=== PATIENT | female | born 1935 | race Caucasian/White ===

== ENCOUNTER 2017-11-21 10:29 | Inpatient (IN) ==
[2017-11-21 11:25] LABS: Basophils % 0.2 % (0.0-0.8); Eosinophils % 0.2 % (0.00-10.9); Hematocrit 34.8 VOL% (35.7-47.0); Hemoglobin 12.6 GM/DL (12.0-16.0); Immature Granulocytes % 0.3 %; Immature Granulocytes Absolute 0.03 #; Lymphocytes # 1.7 10*3/uL (1.4-4.0); Lymphocytes % 18.2 % (21.3-54.2); Mean Corpuscular HGB Conc 36.2 GM/DL (32-36); Mean Corpuscular Hemoglobin 35 PG (27-34); Mean Corpuscular Volume 96.1 FL (87-102); Mean Platelet Volume 9.3 FL (9.6-12.0); Monocytes # 0.6 10*3/uL (0.11-0.8); Monocytes % 6.8 % (1.7-12.7); Neutrophils # 6.9 10*3/uL (1.4-7.4); Neutrophils % 74.3 % (38.7-73.9); Platelet Count 234 T/CUMM (130-400); Red Blood Count 3.62 MC/CUMM (3.8-5.5); Red Cell Distribution Width 14.5 % (9.3-17.3); White Blood Count 9.4 T/CUMM (4-12)
[2017-11-21 11:27] LABS: Apearance,Urine CLEAR (Clear); Bilirubin,Urine Negative (Negative); Blood, Urine Negative (Negative); Glucose,Urine (UA) Negative (Negative); Hyaline Casts,Urine 2 /LPF (0-3); Ketones,Urine Negative (Negative); Nitrite,Urine Negative (Negative); Protein,Urine Negative; RBC,Urine <1 /HPF (0-4); Urine Color Yellow (Yellow); Urine Specific Gravity 1.012 (1.001-1.035); Urine Urobilinogen < 2.0 EU/DL (0.2-1.0); WBC,Urine 13 /HPF (0-6)
[2017-11-21 11:49] LABS: Albumin 3.2 G/DL (3.4-5.0); Bilirubin,Total 0.8 MG/DL (0.2-1.0); Calcium 10.6 MG/DL (8.5-10.1); Osmolality,Calculated 275.1 MOS/KG (273-304); Potassium 4.1 MMOL/L (3.5-5.1); Total Protein 6.6 G/DL (6.4-8.3)
[2017-11-21] MEDS ORDERED: MORPHINE 4 MG/1 ML VIAL IV STA (12:05)
[2017-11-21] MEDS ORDERED: ONDANSETRON 4 MG/2 ML VIAL IV STA (12:24)
[2017-11-21] MEDS ORDERED: ONDANSETRON 4 MG/2 ML VIAL ONE (12:25)
[2017-11-21] MEDS ORDERED: cefTRIAXone 1,000 MG in SODIUM CHLORIDE 0.9% 100 ML IV STA (14:00)
[2017-11-21] MEDS ORDERED: PANTOPRAZOLE 40 MG TABLET PO STA (15:33)
[2017-11-21] MEDS: ALUMINUM/MAGNES/SIMETH MAX STR 30 ML UDCUP PO PRN (15:49)
[2017-11-21] MEDS ORDERED: ONDANSETRON 4 MG/2 ML VIAL IV PRN (16:57)
[2017-11-21 19:20] LABS: Hematocrit 35.4 VOL% (35.7-47.0); Hemoglobin 12.7 GM/DL (12.0-16.0)
[2017-11-21] MEDS: PANTOPRAZOLE 40 MG VIAL IV SCH (20:54)
[2017-11-21] MEDS: SODIUM CHLORIDE 0.9% 1,000 ML IV SCH (20:54)
[2017-11-21] MEDS: FLUTICASONE/SALMETEROL 100-50 DISKUS 14 DOSE INH SCH (20:54)
[2017-11-21] MEDS: MORPHINE 4 MG/1 ML VIAL IV PRN (20:55)
[2017-11-21] MEDS: MIRTAZAPINE 15 MG TABLET PO SCH (21:05)
[2017-11-22 01:06] LABS: Osmolality,Calculated 270.2 MOS/KG (273-304); Potassium 3.7 MMOL/L (3.5-5.1)
[2017-11-22 01:10] LABS: Basophils % 0.4 % (0.0-0.8); Eosinophils # 0.1 10*3/uL (0.0-0.87); Eosinophils % 0.6 % (0.00-10.9); Hematocrit 29.4 VOL% (35.7-47.0); Hemoglobin 10.5 GM/DL (12.0-16.0); Immature Granulocytes % 0.2 %; Immature Granulocytes Absolute 0.02 #; Lymphocytes # 2.1 10*3/uL (1.4-4.0); Lymphocytes % 24.7 % (21.3-54.2); Mean Corpuscular HGB Conc 35.7 GM/DL (32-36); Mean Corpuscular Hemoglobin 35 PG (27-34); Mean Platelet Volume 9.4 FL (9.6-12.0); Monocytes # 0.7 10*3/uL (0.11-0.8); Monocytes % 8.4 % (1.7-12.7); Neutrophils # 5.6 10*3/uL (1.4-7.4); Neutrophils % 65.7 % (38.7-73.9); Platelet Count 206 T/CUMM (130-400); Red Cell Distribution Width 14.6 % (9.3-17.3); White Blood Count 8.6 T/CUMM (4-12)
[2017-11-22] MEDS: LEVOTHYROXINE 75 MCG TABLET PO SCH (09:00)
[2017-11-22] MEDS: FLUTICASONE/SALMETEROL 100-50 DISKUS 14 DOSE INH SCH ×2 (09:15→20:28)
[2017-11-22] MEDS: PANTOPRAZOLE 40 MG VIAL IV SCH ×2 (09:16→20:29)
[2017-11-22] MEDS: SODIUM CHLORIDE 0.9% 1,000 ML IV SCH ×3 (09:20→22:04)
[2017-11-22 10:04] LABS: Hematocrit 28.4 VOL% (35.7-47.0); Hemoglobin 9.8 GM/DL (12.0-16.0)
[2017-11-22] MEDS: MORPHINE 4 MG/1 ML VIAL IV PRN ×2 (12:39→18:34)
[2017-11-22] MEDS: cefTRIAXone 1,000 MG in SYRINGE 1 EACH IV SCH (14:46)
[2017-11-22] MEDS: ZALEPLON 5 MG CAPSULE PO PRN (20:29)
[2017-11-22] MEDS: MIRTAZAPINE 15 MG TABLET PO SCH (20:29)
[2017-11-23] MEDS: MORPHINE 4 MG/1 ML VIAL IV PRN ×2 (07:50→20:27)
[2017-11-23] MEDS: PANTOPRAZOLE 40 MG VIAL IV SCH ×2 (08:58→20:28)
[2017-11-23] MEDS: LEVOTHYROXINE 75 MCG TABLET PO SCH (08:58)
[2017-11-23] MEDS: FLUTICASONE/SALMETEROL 100-50 DISKUS 14 DOSE INH SCH ×2 (09:12→20:26)
[2017-11-23] MEDS: SODIUM CHLORIDE 0.9% 1,000 ML IV SCH ×2 (10:44→23:31)
[2017-11-23] MEDS ORDERED: ACETAMINOPHEN 325 MG TABLET PO PRN (11:10)
[2017-11-23] MEDS: cefTRIAXone 1,000 MG in SYRINGE 1 EACH IV SCH (14:32)
[2017-11-23] MEDS: MIRTAZAPINE 15 MG TABLET PO SCH (20:26)
[2017-11-23] MEDS: ZALEPLON 5 MG CAPSULE PO PRN (20:26)
[2017-11-24 08:39] LABS: Basophils % 0.5 % (0.0-0.8); Eosinophils # 0.1 10*3/uL (0.0-0.87); Eosinophils % 1.5 % (0.00-10.9); Hematocrit 31.8 VOL% (35.7-47.0); Hemoglobin 10.1 GM/DL (12.0-16.0); Immature Granulocytes % 0.5 %; Immature Granulocytes Absolute 0.03 #; Lymphocytes # 1.9 10*3/uL (1.4-4.0); Lymphocytes % 31.8 % (21.3-54.2); Mean Corpuscular HGB Conc 31.8 GM/DL (32-36); Mean Corpuscular Hemoglobin 35 PG (27-34); Mean Corpuscular Volume 109.3 FL (87-102); Mean Platelet Volume 9.3 FL (9.6-12.0); Monocytes # 0.7 10*3/uL (0.11-0.8); Monocytes % 10.9 % (1.7-12.7); Neutrophils # 3.3 10*3/uL (1.4-7.4); Neutrophils % 54.8 % (38.7-73.9); Platelet Count 168 T/CUMM (130-400); Red Blood Count 2.91 MC/CUMM (3.8-5.5); Red Cell Distribution Width 14.8 % (9.3-17.3); White Blood Count 6.1 T/CUMM (4-12)
[2017-11-24] MEDS: FLUTICASONE/SALMETEROL 100-50 DISKUS 14 DOSE INH SCH ×2 (09:11→21:49)
[2017-11-24] MEDS: PANTOPRAZOLE 40 MG VIAL IV SCH ×2 (09:36→21:49)
[2017-11-24] MEDS: LEVOTHYROXINE 75 MCG TABLET PO SCH (09:36)
[2017-11-24] MEDS: MORPHINE 4 MG/1 ML VIAL IV PRN ×2 (10:17→21:48)
[2017-11-24] MEDS: SODIUM CHLORIDE 0.9% 1,000 ML IV SCH (15:28)
[2017-11-24] MEDS: cefTRIAXone 1,000 MG in SYRINGE 1 EACH IV SCH (15:29)
[2017-11-24] MEDS: ALUMINUM/MAGNES/SIMETH MAX STR 30 ML UDCUP PO PRN (18:11)
[2017-11-24] MEDS: ZALEPLON 5 MG CAPSULE PO PRN (21:49)
[2017-11-24] MEDS: MIRTAZAPINE 15 MG TABLET PO SCH (21:49)
[2017-11-25] MEDS: SODIUM CHLORIDE 0.9% 1,000 ML IV SCH (02:50)
[2017-11-25] MEDS: MORPHINE 4 MG/1 ML VIAL IV PRN ×2 (05:41→15:25)
[2017-11-25] MEDS: FLUTICASONE/SALMETEROL 100-50 DISKUS 14 DOSE INH SCH ×2 (09:22→20:47)
[2017-11-25] MEDS: PANTOPRAZOLE 40 MG VIAL IV SCH (09:22)
[2017-11-25] MEDS ORDERED: PROPOFOL 200 MG/20 ML VIAL IV ONE (11:14)
[2017-11-25] MEDS ORDERED: LIDOCAINE 2% 5 ML VIAL ONE (11:14)
[2017-11-25] MEDS: LEVOTHYROXINE 75 MCG TABLET PO SCH (13:40)
[2017-11-25] MEDS: cefTRIAXone 1,000 MG in SYRINGE 1 EACH IV SCH (13:42)
[2017-11-25] MEDS ORDERED: ONDANSETRON 4 MG TABLET PO PRN (18:25)
[2017-11-25] MEDS: MIRTAZAPINE 15 MG TABLET PO SCH (20:48)
[2017-11-25] MEDS: PANTOPRAZOLE 40 MG TABLET PO SCH (20:48)
[2017-11-26] MEDS: ZALEPLON 5 MG CAPSULE PO PRN (01:12)
[2017-11-26] MEDS: CEFUROXIME 500 MG TABLET PO SCH ×2 (10:58→22:20)
[2017-11-26] MEDS: FLUTICASONE/SALMETEROL 100-50 DISKUS 14 DOSE INH SCH ×2 (10:58→22:21)
[2017-11-26] MEDS: PANTOPRAZOLE 40 MG TABLET PO SCH ×2 (10:58→22:20)
[2017-11-26] MEDS: LEVOTHYROXINE 75 MCG TABLET PO SCH (10:58)
[2017-11-26] MEDS ORDERED: BISACODYL 5 MG TABLET PO PRN (12:32)
[2017-11-26] MEDS: ALUMINUM/MAGNES/SIMETH MAX STR 30 ML UDCUP PO PRN (14:21)
[2017-11-26] MEDS ORDERED: MIRTAZAPINE 15 MG TABLET PO SCH (14:31)
[2017-11-26] MEDS ORDERED: MAGNESIUM HYDROXIDE SUSP 30 ML UDCUP PO ONE (14:51)
[2017-11-27] MEDS: FLUTICASONE/SALMETEROL 100-50 DISKUS 14 DOSE INH SCH (09:00)
[2017-11-27] MEDS: LEVOTHYROXINE 75 MCG TABLET PO SCH (11:15)
[2017-11-27] MEDS: CEFUROXIME 500 MG TABLET PO SCH (11:15)
[2017-11-27] MEDS: PANTOPRAZOLE 40 MG TABLET PO SCH (11:15)
[2017-11-27 11:21] VITALS: BP 127/80
== END 2017-11-27 15:20 | disposition swing bed (61) | DRG 378 ==
LOC: EDUNIT# → N.ED 10:29 → SUATTDRO 16:36 → N.EDINP 16:36 → N.3E 17:25 → UNDODISIN 11-27 15:20 → N.3E 11-28 01:21
PROVIDERS: ADMIT Internal Medicine Geriatric Medicine; ATTEND Internal Medicine Geriatric Medicine

== ENCOUNTER 2018-10-31 05:21 | Inpatient (IN) ==
[2018-10-31] MEDS ORDERED: ALBUTEROL/IPRATROPIUM 3 ML NEB RESP TX STA (05:30)
[2018-10-31] MEDS ORDERED: methylPREDNISolone SOD SUC 125 MG/2 ML VIAL IV STA (05:32)
[2018-10-31] MEDS ORDERED: hydrALAZINE 20 MG/1 ML VIAL IV STA (05:36)
[2018-10-31 05:57] LABS: VBG Base Excess -15.1 MEQ/L (0-4); VBG HCO3 13.1 MEQ/L (24-28); VBG Oxygen Saturation 97.5 %; VBG PCO2 35.3 MMHG (41-51)
[2018-10-31 05:58] LABS: Basophils # 0.1 10*3/uL (0.0-0.2); Basophils % 0.7 % (0.0-0.8); Eosinophils # 0.1 10*3/uL (0.0-0.87); Eosinophils % 0.9 % (0.00-10.9); Hemoglobin 12.2 GM/DL (12.0-16.0); Immature Granulocytes % 0.3 %; Immature Granulocytes Absolute 0.04 #; Lymphocytes # 4.5 10*3/uL (1.4-4.0); Lymphocytes % 38.8 % (21.3-54.2); Mean Corpuscular HGB Conc 30.5 GM/DL (32-36); Mean Corpuscular Volume 101.8 FL (87-102); Mean Platelet Volume 9.8 FL (9.6-12.0); Monocytes % 4.3 % (1.7-12.7); Platelet Count 307 T/CUMM (130-400); Red Blood Count 3.93 MC/CUMM (3.8-5.5); Red Cell Distribution Width 15.4 % (9.3-17.3); VBG PH 7.172; White Blood Count 11.5 T/CUMM (4-12)
[2018-10-31] MEDS ORDERED: DILTIAZEM 50 MG/10 ML VIAL IV STA (06:20)
[2018-10-31 06:27] LABS: Albumin 3.6 G/DL (3.4-5.0); Bilirubin,Total 0.6 MG/DL (0.2-1.0); Calcium 8.6 MG/DL (8.5-10.1); Osmolality,Calculated 286.7 MOS/KG (273-304); Total Protein 6.5 G/DL (6.4-8.3)
[2018-10-31 07:05] LABS: Amorphous Crystals,Urine Occasional /HPF (Few); Apearance,Urine Slightly Hazy (Clear); Bacteria,Urine Occasional /HPF (Few); Bilirubin,Urine Negative (Negative); Blood, Urine Negative (Negative); Glucose,Urine (UA) 50 mg/dL (Negative); Ketones,Urine Negative (Negative); Mucus,Urine Occasional /LPF (Occasional); Nitrite,Urine Negative (Negative); Protein,Urine 100 MG/DL; RBC,Urine 3 /HPF (0-4); Squamous Epithelial Cell,Urine Occasional /HPF (0-10); Urine Color Yellow (Yellow); Urine Specific Gravity 1.013 (1.001-1.035); Urine Urobilinogen < 2.0 EU/DL (0.2-1.0); WBC,Urine 7 /HPF (0-6)
[2018-10-31] MEDS ORDERED: ACETAMINOPHEN 500 MG TABLET PO STA (07:10)
[2018-10-31] MEDS ORDERED: FUROSEMIDE 40 MG/4 ML VIAL IV STA (07:23)
[2018-10-31] MEDS: dilTIAZem Drip 125 MG/125 ML PREMIX IV SCH (10:11)
[2018-10-31] MEDS ORDERED: ONDANSETRON 4 MG/2 ML VIAL IV PRN (12:11)
[2018-10-31] MEDS: FUROSEMIDE 40 MG/4 ML VIAL IV SCH (15:45)
[2018-10-31] MEDS: ALBUTEROL 1.25 MG/3 ML NEB RESP TX SCH ×3 (15:47→23:04)
[2018-10-31] MEDS: clonazePAM 0.5 MG TABLET PO PRN (20:31)
[2018-11-01] MEDS: ALBUTEROL 1.25 MG/3 ML NEB RESP TX SCH ×2 (03:06→07:23)
[2018-11-01 04:55] LABS: Hematocrit 34.9 VOL% (35.7-47.0); Hemoglobin 11.4 GM/DL (12.0-16.0); Immature Granulocytes % 0.3 %; Immature Granulocytes Absolute 0.02 #; Lymphocytes # 1.7 10*3/uL (1.4-4.0); Lymphocytes % 23.7 % (21.3-54.2); Mean Corpuscular HGB Conc 32.7 GM/DL (32-36); Mean Corpuscular Volume 94.8 FL (87-102); Mean Platelet Volume 9.8 FL (9.6-12.0); Monocytes % 10.9 % (1.7-12.7); Neutrophils % 65.1 % (38.7-73.9); Platelet Count 247 T/CUMM (130-400); Red Blood Count 3.68 MC/CUMM (3.8-5.5); Red Cell Distribution Width 15.1 % (9.3-17.3); White Blood Count 7.2 T/CUMM (4-12)
[2018-11-01 05:27] LABS: Calcium 8.8 MG/DL (8.5-10.1); Osmolality,Calculated 284.3 MOS/KG (273-304); Risk Ratio 1.58; Thyroid Stimulating Hormone 0.482 uIU/ml (0.358-3.74); VLDL CHOLESTEROL 16.2 MG/DL
[2018-11-01] MEDS: LEVOTHYROXINE 75 MCG TABLET PO SCH (06:10)
[2018-11-01] MEDS: dilTIAZem Drip 125 MG/125 ML PREMIX IV SCH (07:06)
[2018-11-01] MEDS ORDERED: NICOTINE 14 MG/24 HR PATCH TRANSDERM PRN (07:25)
[2018-11-01] MEDS ORDERED: LEVALBUTEROL 1.25 MG/3 ML NEB RESP TX PRN (07:32)
[2018-11-01] MEDS ORDERED: guaiFENesin/DM ER 600-30 MG TABLET PO PRN (08:11)
[2018-11-01] MEDS: METOPROLOL SUCCINATE XL 25 MG TABLET PO SCH (08:54)
[2018-11-01] MEDS: LISINOPRIL 5 MG TABLET PO SCH (08:54)
[2018-11-01] MEDS: FUROSEMIDE 40 MG/4 ML VIAL IV SCH ×2 (08:55→17:29)
[2018-11-01] MEDS: ACETAMINOPHEN 325 MG TABLET PO PRN (08:55)
[2018-11-01] MEDS: POTASSIUM CHLORIDE 20 MEQ TABLET PO PRN ×3 (08:55→14:49)
[2018-11-01] MEDS: PANTOPRAZOLE 40 MG TABLET PO SCH (08:58)
[2018-11-01] MEDS: LORATADINE 10 MG TABLET PO SCH (08:58)
[2018-11-01] MEDS: LEVALBUTEROL 1.25 MG/3 ML NEB RESP TX SCH ×3 (14:35→23:45)
[2018-11-01] MEDS: clonazePAM 0.5 MG TABLET PO PRN (19:11)
[2018-11-01] MEDS: BISACODYL 5 MG TABLET PO PRN (19:24)
[2018-11-01] MEDS ORDERED: NITROGLYCERIN SL 0.4 MG TABLET SL ONE ×2 (21:07→21:10)
[2018-11-01 21:50] LABS: Troponin I 0.054 NG/ML (0.00-0.045)
[2018-11-02 01:09] LABS: Troponin I 0.054 NG/ML (0.00-0.045)
[2018-11-02] MEDS: LEVALBUTEROL 1.25 MG/3 ML NEB RESP TX SCH ×6 (03:25→23:15)
[2018-11-02 04:50] LABS: Basophils % 0.5 % (0.0-0.8); Eosinophils # 0.1 10*3/uL (0.0-0.87); Eosinophils % 0.6 % (0.00-10.9); Hematocrit 36.9 VOL% (35.7-47.0); Hemoglobin 11.8 GM/DL (12.0-16.0); Immature Granulocytes % 0.4 %; Immature Granulocytes Absolute 0.03 #; Lymphocytes % 23.4 % (21.3-54.2); Mean Corpuscular Volume 96.9 FL (87-102); Mean Platelet Volume 10.1 FL (9.6-12.0); Monocytes % 9.7 % (1.7-12.7); Neutrophils % 65.4 % (38.7-73.9); Platelet Count 249 T/CUMM (130-400); Red Blood Count 3.81 MC/CUMM (3.8-5.5); Red Cell Distribution Width 15.5 % (9.3-17.3); White Blood Count 8.5 T/CUMM (4-12)
[2018-11-02 05:14] LABS: Calcium 9.5 MG/DL (8.5-10.1); Osmolality,Calculated 289.3 MOS/KG (273-304)
[2018-11-02 05:18] LABS: Troponin I 0.065 NG/ML (0.00-0.045)
[2018-11-02] MEDS: LEVOTHYROXINE 75 MCG TABLET PO SCH (05:48)
[2018-11-02] MEDS: dilTIAZem Drip 125 MG/125 ML PREMIX IV SCH (05:48)
[2018-11-02] MEDS: LISINOPRIL 5 MG TABLET PO SCH (09:04)
[2018-11-02] MEDS: FUROSEMIDE 40 MG/4 ML VIAL IV SCH ×2 (09:06→16:25)
[2018-11-02] MEDS: LORATADINE 10 MG TABLET PO SCH (09:09)
[2018-11-02] MEDS: METOPROLOL SUCCINATE XL 25 MG TABLET PO SCH ×2 (09:10→22:49)
[2018-11-02] MEDS: PANTOPRAZOLE 40 MG TABLET PO SCH (09:10)
[2018-11-02] MEDS ORDERED: METOPROLOL TARTRATE 5 MG/5 ML VIAL IV ONE ×3 (17:36→18:54)
[2018-11-02] MEDS ORDERED: DIGOXIN 0.5 MG/2 ML AMP IV ONE (18:19)
[2018-11-02] MEDS ORDERED: dilTIAZem Drip 125 MG/125 ML PREMIX IV SCH (19:00)
[2018-11-02] MEDS ORDERED: AMIODARONE INJ 450 MG in DEXTROSE 5% 241 ML IV SCH (20:00)
[2018-11-02] MEDS ORDERED: AMIODARONE INJ 150 MG in DEXTROSE 5% 100 ML IV ONE (20:28)
[2018-11-02] MEDS: APIXABAN 2.5 MG TABLET PO SCH (21:23)
[2018-11-02] MEDS: ACETAMINOPHEN 325 MG TABLET PO PRN (21:23)
[2018-11-03] MEDS ORDERED: AMIODARONE INJ 450 MG in DEXTROSE 5% 241 ML IV SCH (02:00)
[2018-11-03] MEDS: LEVALBUTEROL 1.25 MG/3 ML NEB RESP TX SCH ×5 (03:07→19:55)
[2018-11-03] MEDS: LEVOTHYROXINE 75 MCG TABLET PO SCH (05:50)
[2018-11-03] MEDS: dilTIAZem Drip 125 MG/125 ML PREMIX IV SCH (07:09)
[2018-11-03] MEDS: APIXABAN 2.5 MG TABLET PO SCH ×2 (09:00→21:13)
[2018-11-03] MEDS: LORATADINE 10 MG TABLET PO SCH (09:00)
[2018-11-03] MEDS: PANTOPRAZOLE 40 MG TABLET PO SCH (09:00)
[2018-11-03] MEDS: METOPROLOL SUCCINATE XL 25 MG TABLET PO SCH ×2 (09:01→21:14)
[2018-11-03] MEDS: FUROSEMIDE 40 MG/4 ML VIAL IV SCH (09:01)
[2018-11-03] MEDS: LISINOPRIL 5 MG TABLET PO SCH (09:01)
[2018-11-03 11:04] LABS: Calcium 8.2 MG/DL (8.5-10.1); Osmolality,Calculated 277.2 MOS/KG (273-304)
[2018-11-03] MEDS: AMIODARONE 200 MG TABLET PO SCH ×2 (12:06→21:13)
[2018-11-03] MEDS ORDERED: MAGNESIUM SULF RIDER 2 GM in PREMIX 1 EACH IV PRN (12:58)
[2018-11-03] MEDS ORDERED: MAGNESIUM SULF RIDER 4 GM in PREMIX 1 EACH IV PRN (12:58)
[2018-11-03] MEDS: BISACODYL 5 MG TABLET PO PRN (21:13)
[2018-11-04] MEDS: LEVALBUTEROL 1.25 MG/3 ML NEB RESP TX SCH ×7 (00:08→23:05)
[2018-11-04] MEDS: LEVOTHYROXINE 75 MCG TABLET PO SCH (05:30)
[2018-11-04 05:38] LABS: Basophils % 0.3 % (0.0-0.8); Eosinophils # 0.1 10*3/uL (0.0-0.87); Eosinophils % 0.5 % (0.00-10.9); Hemoglobin 11.9 GM/DL (12.0-16.0); Immature Granulocytes % 0.3 %; Immature Granulocytes Absolute 0.03 #; Lymphocytes # 1.7 10*3/uL (1.4-4.0); Lymphocytes % 17.8 % (21.3-54.2); Mean Corpuscular HGB Conc 32.2 GM/DL (32-36); Mean Corpuscular Volume 95.9 FL (87-102); Mean Platelet Volume 9.6 FL (9.6-12.0); Monocytes % 11.6 % (1.7-12.7); Neutrophils % 69.5 % (38.7-73.9); Platelet Count 255 T/CUMM (130-400); Red Blood Count 3.86 MC/CUMM (3.8-5.5); White Blood Count 9.7 T/CUMM (4-12)
[2018-11-04 05:53] LABS: Calcium 8.6 MG/DL (8.5-10.1); Osmolality,Calculated 279.1 MOS/KG (273-304)
[2018-11-04] MEDS: LORATADINE 10 MG TABLET PO SCH (09:43)
[2018-11-04] MEDS: AMIODARONE 200 MG TABLET PO SCH ×2 (09:44→23:39)
[2018-11-04] MEDS: FUROSEMIDE 40 MG TABLET PO SCH (09:44)
[2018-11-04] MEDS: LISINOPRIL 5 MG TABLET PO SCH (09:44)
[2018-11-04] MEDS: METOPROLOL SUCCINATE XL 25 MG TABLET PO SCH ×2 (09:44→23:39)
[2018-11-04] MEDS: APIXABAN 2.5 MG TABLET PO SCH ×2 (09:44→23:39)
[2018-11-04] MEDS: PANTOPRAZOLE 40 MG TABLET PO SCH (09:44)
[2018-11-04] MEDS: clonazePAM 0.5 MG TABLET PO PRN (14:49)
[2018-11-05] MEDS: LEVALBUTEROL 1.25 MG/3 ML NEB RESP TX SCH ×3 (02:15→10:43)
[2018-11-05 04:46] LABS: Basophils % 0.5 % (0.0-0.8); Eosinophils # 0.1 10*3/uL (0.0-0.87); Hematocrit 36.2 VOL% (35.7-47.0); Hemoglobin 11.5 GM/DL (12.0-16.0); Immature Granulocytes % 0.5 %; Immature Granulocytes Absolute 0.04 #; Lymphocytes % 24.9 % (21.3-54.2); Mean Corpuscular HGB Conc 31.8 GM/DL (32-36); Mean Corpuscular Volume 97.3 FL (87-102); Mean Platelet Volume 9.6 FL (9.6-12.0); Monocytes % 13.1 % (1.7-12.7); Platelet Count 239 T/CUMM (130-400); Red Blood Count 3.72 MC/CUMM (3.8-5.5); Red Cell Distribution Width 14.7 % (9.3-17.3)
[2018-11-05 05:15] LABS: Calcium 8.7 MG/DL (8.5-10.1); Osmolality,Calculated 282.1 MOS/KG (273-304)
[2018-11-05] MEDS: LEVOTHYROXINE 75 MCG TABLET PO SCH (06:03)
[2018-11-05] MEDS ORDERED: diphenhydrAMINE CAP 25 MG CAPSULE PO PRN (08:52)
[2018-11-05] MEDS: clonazePAM 0.5 MG TABLET PO PRN (09:30)
[2018-11-05] MEDS: METOPROLOL SUCCINATE XL 25 MG TABLET PO SCH (09:30)
[2018-11-05] MEDS: LISINOPRIL 5 MG TABLET PO SCH (09:30)
[2018-11-05] MEDS: FUROSEMIDE 40 MG TABLET PO SCH (09:31)
[2018-11-05] MEDS: AMIODARONE 200 MG TABLET PO SCH (09:31)
[2018-11-05] MEDS: LORATADINE 10 MG TABLET PO SCH (09:31)
[2018-11-05] MEDS: APIXABAN 2.5 MG TABLET PO SCH (09:31)
[2018-11-05] MEDS: PANTOPRAZOLE 40 MG TABLET PO SCH (09:31)
[2018-11-05] MEDS ORDERED: cefTRIAXone 1,000 MG in SODIUM CHLORIDE 0.9% 100 ML IV ONE (09:40)
[2018-11-05] MEDS ORDERED: AMOXICILLIN 500 MG CAPSULE PO SCH (10:00)
[2018-11-05 12:22] VITALS: BP 120/57
== END 2018-11-05 13:20 | disposition swing bed (61) | DRG 291 ==
LOC: EDUNIT# → N.ED 05:21 → SUATTDRO 07:44 → N.EDINP 07:44 → N.ICU 08:36 → N.TELES 09:45
PROVIDERS: ADMIT Internal Medicine; ATTEND Internal Medicine

== ENCOUNTER 2019-09-07 03:36 | Inpatient (IN) ==
[2019-09-07 04:15] LABS: Basophils % 0.3 % (0.0-0.8); Eosinophils % 0.1 % (0.00-10.9); Hematocrit 38.6 VOL% (35.7-47.0); Immature Granulocytes % 0.2 %; Immature Granulocytes Absolute 0.02 #; Lymphocytes # 1.5 10*3/uL (1.4-4.0); Lymphocytes % 16.9 % (21.3-54.2); Mean Corpuscular HGB Conc 31.1 GM/DL (32-36); Mean Corpuscular Volume 99.7 FL (87-102); Mean Platelet Volume 8.4 FL (9.6-12.0); Monocytes % 6.2 % (1.7-12.7); Neutrophils % 76.3 % (38.7-73.9); Platelet Count 265 T/CUMM (130-400); Red Blood Count 3.87 MC/CUMM (3.8-5.5); Red Cell Distribution Width 15.1 % (9.3-17.3); White Blood Count 8.9 T/CUMM (4-12)
[2019-09-07 04:50] LABS: Hypochromasia 1+; Platelet Estimate Adequate
[2019-09-07] MEDS ORDERED: ALBUTEROL/IPRATROPIUM 3 ML NEB RESP TX STA (04:57)
[2019-09-07 05:10] LABS: Albumin 3.7 G/DL (3.4-5.0); Bilirubin,Total 1.3 MG/DL (0.2-1.0); Calcium 8.5 MG/DL (8.5-10.1); Total Protein 7.7 G/DL (6.4-8.3)
[2019-09-07 05:13] LABS: Apearance,Urine CLEAR (Clear); Bacteria,Urine Occasional /HPF (Few); Bilirubin,Urine Negative (Negative); Blood, Urine Negative (Negative); Glucose,Urine (UA) Negative (Negative); Ketones,Urine 20 mg/dL (Negative); Mucus,Urine Occasional /LPF (Occasional); Nitrite,Urine Negative (Negative); Protein,Urine 30 MG/DL; RBC,Urine 2 /HPF (0-4); Squamous Epithelial Cell,Urine Occasional /HPF (0-10); Urine Color Yellow (Yellow); Urine Specific Gravity 1.015 (1.001-1.035); Urine Urobilinogen < 2.0 EU/DL (0.2-1.0); WBC,Urine 5 /HPF (0-6)
[2019-09-07] MEDS ORDERED: methylPREDNISolone SOD SUC 125 MG/2 ML VIAL IV STA (05:25)
[2019-09-07] MEDS ORDERED: LEVOFLOXACIN INJ 500 MG in PREMIX 1 EACH IV STA (05:25)
[2019-09-07] MEDS ORDERED: ONDANSETRON 4 MG/2 ML VIAL IV PRN (06:04)
[2019-09-07] MEDS ORDERED: hydrALAZINE 20 MG/1 ML VIAL IV PRN (06:04)
[2019-09-07] MEDS ORDERED: diphenhydrAMINE CAP 25 MG CAPSULE PO PRN (06:04)
[2019-09-07] MEDS ORDERED: ALUMINUM/MAGNES/SIMETH MAX STR 30 ML UDCUP PO PRN (06:04)
[2019-09-07] MEDS ORDERED: traZODone 50 MG TABLET PO PRN (06:04)
[2019-09-07] MEDS ORDERED: NICOTINE 21 MG/24 HR PATCH TRANSDERM PRN (06:04)
[2019-09-07 06:26] LABS: INR 2.5
[2019-09-07 06:32] LABS: PT Patient Result 26.5 SECS (9.6-12.2); Partial Thromboplastin Time 41.5 SECS (20.8-36.0)
[2019-09-07] MEDS: ACETAMINOPHEN 325 MG TABLET PO PRN (08:26)
[2019-09-07] MEDS ORDERED: AZITHROMYCIN 250 MG TABLET PO ONE (12:00)
[2019-09-07] MEDS: WARFARIN 2 MG TABLET PO SCH (21:37)
[2019-09-07] MEDS: methylPREDNISolone SOD SUC 40 MG/1 ML VIAL IV SCH (21:38)
[2019-09-08 05:14] LABS: INR 2.2
[2019-09-08 05:17] LABS: PT Patient Result 23.4 SECS (9.6-12.2)
[2019-09-08] MEDS ORDERED: LEVOFLOXACIN INJ 750 MG in PREMIX 1 EACH IV SCH (06:30)
[2019-09-08] MEDS: methylPREDNISolone SOD SUC 40 MG/1 ML VIAL IV SCH ×2 (09:53→20:16)
[2019-09-08] MEDS: AZITHROMYCIN 250 MG TABLET PO SCH (09:53)
[2019-09-08] MEDS: guaiFENesin/DM ER 600-30 MG TABLET PO PRN ×2 (09:55→20:04)
[2019-09-08] MEDS: ACETAMINOPHEN 325 MG TABLET PO PRN ×2 (10:04→20:04)
[2019-09-08] MEDS ORDERED: ALBUTEROL/IPRATROPIUM 3 ML NEB RESP TX PRN (10:38)
[2019-09-08] MEDS: PANTOPRAZOLE 40 MG TABLET PO SCH (12:36)
[2019-09-08] MEDS: FLUTICASONE/SALMETEROL 250-50 DISKUS 14 DOSE INH SCH ×2 (12:36→20:03)
[2019-09-08] MEDS: cefTRIAXone 1,000 MG in SYRINGE 1 EACH IV SCH (17:00)
[2019-09-08] MEDS: WARFARIN 4 MG TABLET PO SCH (20:04)
[2019-09-09 08:21] LABS: Hematocrit 35.4 VOL% (35.7-47.0); Hemoglobin 11.2 GM/DL (12.0-16.0); Immature Granulocytes % 0.6 %; Immature Granulocytes Absolute 0.04 #; Lymphocytes # 1.7 10*3/uL (1.4-4.0); Lymphocytes % 24.3 % (21.3-54.2); Mean Corpuscular HGB Conc 31.6 GM/DL (32-36); Mean Corpuscular Volume 98.3 FL (87-102); Mean Platelet Volume 8.8 FL (9.6-12.0); Monocytes % 7.2 % (1.7-12.7); Neutrophils % 67.9 % (38.7-73.9); Platelet Count 263 T/CUMM (130-400); White Blood Count 7.1 T/CUMM (4-12)
[2019-09-09 08:44] LABS: Calcium 8.5 MG/DL (8.5-10.1); Hypochromasia Slight; Lymphocytes 20 % (20-55); Osmolality,Calculated 279.7 MOS/KG (273-304); Platelet Estimate Adequate; Segmented Neutrophils 77 % (50-85); Total Cells Counted 100
[2019-09-09 08:45] LABS: Ovalocytes Slight
[2019-09-09] MEDS: PANTOPRAZOLE 40 MG TABLET PO SCH (09:06)
[2019-09-09] MEDS: FLUTICASONE/SALMETEROL 250-50 DISKUS 14 DOSE INH SCH ×2 (09:06→20:26)
[2019-09-09] MEDS: methylPREDNISolone SOD SUC 40 MG/1 ML VIAL IV SCH ×2 (09:06→17:56)
[2019-09-09] MEDS: AZITHROMYCIN 250 MG TABLET PO SCH (09:06)
[2019-09-09] MEDS: guaiFENesin/DM ER 600-30 MG TABLET PO PRN (09:14)
[2019-09-09] MEDS: cefTRIAXone 1,000 MG in SYRINGE 1 EACH IV SCH (15:02)
[2019-09-09] MEDS: ACETAMINOPHEN 325 MG TABLET PO PRN (15:03)
[2019-09-09] MEDS: BENZONATATE 100 MG CAPSULE PO PRN (15:03)
[2019-09-09] MEDS: WARFARIN 2 MG TABLET PO SCH (18:54)
[2019-09-10] MEDS: methylPREDNISolone SOD SUC 40 MG/1 ML VIAL IV SCH ×2 (04:44→21:48)
[2019-09-10 05:30] LABS: Basophils % 0.2 % (0.0-0.8); Hematocrit 33.4 VOL% (35.7-47.0); Hemoglobin 10.6 GM/DL (12.0-16.0); Immature Granulocytes % 1.1 %; Immature Granulocytes Absolute 0.07 #; Lymphocytes # 1.3 10*3/uL (1.4-4.0); Lymphocytes % 21.3 % (21.3-54.2); Mean Corpuscular HGB Conc 31.7 GM/DL (32-36); Mean Corpuscular Volume 97.9 FL (87-102); Mean Platelet Volume 9.8 FL (9.6-12.0); Monocytes % 5.9 % (1.7-12.7); Neutrophils % 71.5 % (38.7-73.9); Platelet Count 219 T/CUMM (130-400); Red Blood Count 3.41 MC/CUMM (3.8-5.5); Red Cell Distribution Width 15.1 % (9.3-17.3); White Blood Count 6.2 T/CUMM (4-12)
[2019-09-10 06:07] LABS: Hypochromasia Slight; Platelet Estimate Adequate
[2019-09-10 06:45] LABS: Calcium 8.5 MG/DL (8.5-10.1)
[2019-09-10] MEDS: AZITHROMYCIN 250 MG TABLET PO SCH (08:50)
[2019-09-10] MEDS: PANTOPRAZOLE 40 MG TABLET PO SCH (08:50)
[2019-09-10] MEDS: BENZONATATE 100 MG CAPSULE PO PRN ×3 (08:50→21:48)
[2019-09-10] MEDS: FLUTICASONE/SALMETEROL 250-50 DISKUS 14 DOSE INH SCH ×2 (08:50→23:57)
[2019-09-10] MEDS: ACETAMINOPHEN 325 MG TABLET PO PRN (15:44)
[2019-09-10] MEDS: cefTRIAXone 1,000 MG in SYRINGE 1 EACH IV SCH (15:44)
[2019-09-10] MEDS: WARFARIN 4 MG TABLET PO SCH (18:10)
[2019-09-11] MEDS: guaiFENesin/DM ER 600-30 MG TABLET PO PRN ×2 (05:09→22:00)
[2019-09-11 06:28] LABS: Basophils % 0.2 % (0.0-0.8); Hemoglobin 10.8 GM/DL (12.0-16.0); Immature Granulocytes % 2.8 %; Immature Granulocytes Absolute 0.15 #; Mean Corpuscular HGB Conc 30.9 GM/DL (32-36); Mean Corpuscular Volume 99.7 FL (87-102); Mean Platelet Volume 9.1 FL (9.6-12.0); Monocytes % 4.5 % (1.7-12.7); Neutrophils % 74.5 % (38.7-73.9); Platelet Count 267 T/CUMM (130-400); Red Blood Count 3.51 MC/CUMM (3.8-5.5); Red Cell Distribution Width 15.1 % (9.3-17.3); White Blood Count 5.3 T/CUMM (4-12)
[2019-09-11 07:05] LABS: Calcium 7.9 MG/DL (8.5-10.1)
[2019-09-11] MEDS: methylPREDNISolone SOD SUC 40 MG/1 ML VIAL IV SCH (08:54)
[2019-09-11] MEDS: AZITHROMYCIN 250 MG TABLET PO SCH (08:55)
[2019-09-11] MEDS: PANTOPRAZOLE 40 MG TABLET PO SCH (08:55)
[2019-09-11] MEDS: FLUTICASONE/SALMETEROL 250-50 DISKUS 14 DOSE INH SCH ×2 (08:55→22:00)
[2019-09-11 12:34] LABS: PT Patient Result 88.8 SECS (9.6-12.2)
[2019-09-11 12:36] LABS: INR 8.3
[2019-09-11 13:05] LABS: Hematocrit 37.7 VOL% (35.7-47.0); Hemoglobin 11.8 GM/DL (12.0-16.0)
[2019-09-11] MEDS: ACETAMINOPHEN 325 MG TABLET PO PRN (15:35)
[2019-09-11] MEDS: BENZONATATE 100 MG CAPSULE PO PRN (15:40)
[2019-09-11] MEDS: cefTRIAXone 1,000 MG in SYRINGE 1 EACH IV SCH (15:43)
[2019-09-11 17:01] LABS: Hematocrit 34.9 VOL% (35.7-47.0); Hemoglobin 11.3 GM/DL (12.0-16.0)
[2019-09-11 20:38] LABS: Hematocrit 34.1 VOL% (35.7-47.0); Hemoglobin 10.7 GM/DL (12.0-16.0)
[2019-09-11] MEDS ORDERED: predniSONE 20 MG TABLET PO SCH (21:00)
[2019-09-12 00:29] LABS: Hematocrit 33.2 VOL% (35.7-47.0); Hemoglobin 10.7 GM/DL (12.0-16.0)
[2019-09-12 06:13] LABS: Basophils % 0.4 % (0.0-0.8); Hematocrit 34.5 VOL% (35.7-47.0); Hemoglobin 11.5 GM/DL (12.0-16.0); Immature Granulocytes % 3.5 %; Immature Granulocytes Absolute 0.25 #; Lymphocytes # 2.5 10*3/uL (1.4-4.0); Lymphocytes % 34.5 % (21.3-54.2); Mean Corpuscular HGB Conc 33.3 GM/DL (32-36); Mean Corpuscular Volume 95.6 FL (87-102); Mean Platelet Volume 9.3 FL (9.6-12.0); Monocytes % 9.6 % (1.7-12.7); Platelet Count 301 T/CUMM (130-400); Red Blood Count 3.61 MC/CUMM (3.8-5.5); Red Cell Distribution Width 14.7 % (9.3-17.3); White Blood Count 7.1 T/CUMM (4-12)
[2019-09-12 06:34] LABS: Calcium 8.5 MG/DL (8.5-10.1); Osmolality,Calculated 273.2 MOS/KG (273-304)
[2019-09-12] MEDS: predniSONE 20 MG TABLET PO SCH ×2 (06:42→08:26)
[2019-09-12 07:21] LABS: PT Patient Result 62.9 SECS (9.6-12.2)
[2019-09-12 07:23] LABS: INR 5.9
[2019-09-12] MEDS: FLUTICASONE/SALMETEROL 250-50 DISKUS 14 DOSE INH SCH ×2 (08:25→21:54)
[2019-09-12] MEDS: PANTOPRAZOLE 40 MG TABLET PO SCH (08:26)
[2019-09-12] MEDS: ACETAMINOPHEN 325 MG TABLET PO PRN (14:12)
[2019-09-12] MEDS: cefTRIAXone 1,000 MG in SYRINGE 1 EACH IV SCH (14:58)
[2019-09-12] MEDS: guaiFENesin/DM ER 600-30 MG TABLET PO PRN (21:51)
[2019-09-13 03:04] LABS: Troponin I < 0.015 NG/ML (0.00-0.045)
[2019-09-13 05:40] LABS: INR 4.2
[2019-09-13 06:13] LABS: PT Patient Result 44.6 SECS (9.6-12.2)
[2019-09-13] MEDS: PANTOPRAZOLE 40 MG TABLET PO SCH (08:45)
[2019-09-13] MEDS: FLUTICASONE/SALMETEROL 250-50 DISKUS 14 DOSE INH SCH (08:45)
[2019-09-13] MEDS: predniSONE 20 MG TABLET PO SCH (08:46)
[2019-09-13] MEDS: cefTRIAXone 1,000 MG in SYRINGE 1 EACH IV SCH (11:16)
[2019-09-13 12:05] VITALS: BP 130/53
== END 2019-09-13 13:38 | DRG 191 ==
LOC: EDUNIT# → EDBD → N.EDINP 03:36 → N.ED 03:36 → N.2E 06:23 → SUATTDRO 09-10 14:26
PROVIDERS: ADMIT Internal Medicine; ATTEND Family Medicine

== ENCOUNTER 2022-03-31 16:02 | Inpatient (IN) ==
[2022-03-31] MEDS ORDERED: METOPROLOL TARTRATE 5 MG/5 ML VIAL IV STA (17:00)
[2022-03-31 17:19] LABS: Basophils % 0.4 % (0.0-0.8); Eosinophils % 0.1 % (0.00-10.9); Hematocrit 41.2 VOL% (35.7-47.0); Immature Granulocytes % 0.5 %; Immature Granulocytes Absolute 0.05 #; Lymphocytes # 1.6 10*3/uL (1.4-4.0); Lymphocytes % 16.5 % (21.3-54.2); Mean Corpuscular Volume 94.3 FL (87-102); Mean Platelet Volume 8.8 FL (9.6-12.0); Monocytes # 0.5 10*3/uL (0.11-0.8); Monocytes % 4.9 % (1.7-12.7); Neutrophils % 77.6 % (38.7-73.9); Platelet Count 256 T/CUMM (130-400); Red Blood Count 4.37 MC/CUMM (3.8-5.5); Red Cell Distribution Width 14.6 % (9.3-17.3); White Blood Count 9.6 T/CUMM (4-12)
[2022-03-31 17:30] LABS: PT Patient Result 11.1 SECS (10.1-12.1); Partial Thromboplastin Time 27.3 SECS (23.7-32.9)
[2022-03-31 17:39] LABS: Albumin 4.2 G/DL (3.4-5.0); Bilirubin,Total 0.8 MG/DL (0.20-1.00); Calcium 8.9 MG/DL (8.5-10.1); Osmolality,Calculated 268.1 MOS/KG (273-304); Potassium 4.5 MMOL/L (3.5-5.1); Total Protein 7.3 G/DL (6.4-8.2)
[2022-03-31 17:51] LABS: Free T4 (Free Thyroxine) 1.18 NG/DL (0.76-1.46); Thyroid Stimulating Hormone 2.22 uIU/ml (0.358-3.74)
[2022-03-31 18:34] LABS: Barbiturates Screen,Urine Negative (Negative); Benzodiazepines Screen,Urine Negative (Negative); Cannabinoid Screen,Urine Negative (Negative); Opiate Screen,Urine Negative (Negative); Phencyclidine Screen,Urine Negative (Negative)
[2022-03-31 19:11] LABS: Glucose,Urine (UA) Negative (Negative); Ketones,Urine Negative (Negative); Nitrite,Urine Positive (Negative); Protein,Urine Trace mg/dL (Negative); Urine Appearance Clear (Clear); Urine Color Straw (Yellow); Urine Specific Gravity 1.015 (1.001-1.035)
[2022-03-31 19:12] LABS: Bilirubin,Urine Negative (Negative); Blood, Urine Trace mg/dL (Negative); Urine Urobilinogen 0.2 eU/dL (<2.0)
[2022-03-31 19:28] LABS: Bacteria,Urine Occasional /HPF (Few); RBC,Urine 1 /HPF (0-4); Squamous Epithelial Cell,Urine Occasional /HPF (0-10)
[2022-03-31] MEDS ORDERED: ONDANSETRON 4 MG/2 ML VIAL IV PRN (19:49)
[2022-03-31] MEDS ORDERED: MORPHINE 2 MG/1 ML SYRINGE IV PRN (19:49)
[2022-03-31] MEDS ORDERED: ACETAMINOPHEN 325 MG TABLET PO PRN (19:49)
[2022-03-31] MEDS ORDERED: hydrALAZINE 20 MG/1 ML VIAL IV PRN (19:49)
[2022-03-31] MEDS ORDERED: NICOTINE 21 MG/24 HR PATCH TRANSDERM PRN (19:49)
[2022-03-31] MEDS ORDERED: LEVALBUTEROL 1.25 MG/3 ML NEB RESP TX PRN (20:25)
[2022-03-31] MEDS ORDERED: IPRATROPIUM 500 MCG/2.5 ML NEB RESP TX PRN (20:25)
[2022-03-31 20:26] LABS: VBG Base Excess -2.2 MEQ/L (0-4); VBG HCO3 22.6 MEQ/L (24-28); VBG Oxygen Saturation 99.4 %; VBG PCO2 29.3 MMHG (41-51); VBG PH 7.453; VBG Total CO2 17.6 MMOL/L
[2022-03-31] MEDS ORDERED: METOPROLOL SUCCINATE XL 25 MG TABLET PO ONE (20:30)
[2022-03-31] MEDS ORDERED: ENOXAPARIN 60 MG/0.6 ML SYRINGE SUBCUT ONE (20:30)
[2022-03-31] MEDS: cefTRIAXone 1,000 MG in SODIUM CHLORIDE 0.9% 100 ML IV SCH (20:47)
[2022-03-31] MEDS: INSULIN LISPRO 100 UNIT/ML SUBCUT SCH (21:31)
[2022-04-01 04:47] LABS: Basophils # 0.1 10*3/uL (0.0-0.2); Basophils % 0.7 % (0.0-0.8); Eosinophils % 0.3 % (0.00-10.9); Hemoglobin 13.3 GM/DL (12.0-16.0); Immature Granulocytes % 0.4 %; Immature Granulocytes Absolute 0.03 #; Lymphocytes # 2.6 10*3/uL (1.4-4.0); Lymphocytes % 34.7 % (21.3-54.2); Mean Corpuscular HGB Conc 34.1 GM/DL (32-36); Mean Corpuscular Volume 95.1 FL (87-102); Mean Platelet Volume 9.5 FL (9.6-12.0); Monocytes # 0.9 10*3/uL (0.11-0.8); Monocytes % 11.8 % (1.7-12.7); Neutrophils % 52.1 % (38.7-73.9); Platelet Count 252 T/CUMM (130-400); Red Cell Distribution Width 14.8 % (9.3-17.3); White Blood Count 7.5 T/CUMM (4-12)
[2022-04-01 05:10] LABS: Osmolality,Calculated 261.5 MOS/KG (273-304); Potassium 3.7 MMOL/L (3.5-5.1)
[2022-04-01] MEDS: PANTOPRAZOLE 40 MG TABLET PO SCH (09:17)
[2022-04-01] MEDS ORDERED: SODIUM CHLORIDE 0.9% 1,000 ML IV SCH (09:30)
[2022-04-01] MEDS: INSULIN LISPRO 100 UNIT/ML SUBCUT SCH ×4 (10:01→21:43)
[2022-04-01] MEDS: FOLIC ACID 1 MG TABLET PO SCH (11:11)
[2022-04-01] MEDS: GABAPENTIN 100 MG CAPSULE PO SCH ×2 (11:11→21:42)
[2022-04-01] MEDS: METOPROLOL SUCCINATE XL 25 MG TABLET PO SCH ×2 (11:11→21:42)
[2022-04-01] MEDS: LEVOTHYROXINE 50 MCG TABLET PO SCH (11:11)
[2022-04-01] MEDS: CYCLOBENZAPRINE 10 MG TABLET PO SCH ×2 (11:14→21:41)
[2022-04-01] MEDS: cefTRIAXone 1,000 MG in SODIUM CHLORIDE 0.9% 100 ML IV SCH (21:41)
[2022-04-02 04:58] LABS: Basophils % 0.5 % (0.0-0.8); Eosinophils # 0.1 10*3/uL (0.0-0.87); Eosinophils % 1.5 % (0.00-10.9); Hematocrit 33.8 VOL% (35.7-47.0); Hemoglobin 11.5 GM/DL (12.0-16.0); Immature Granulocytes % 0.2 %; Immature Granulocytes Absolute 0.01 #; Lymphocytes # 2.2 10*3/uL (1.4-4.0); Lymphocytes % 36.3 % (21.3-54.2); Mean Corpuscular Volume 95.2 FL (87-102); Mean Platelet Volume 9.1 FL (9.6-12.0); Monocytes # 0.8 10*3/uL (0.11-0.8); Monocytes % 13.3 % (1.7-12.7); Neutrophils % 48.2 % (38.7-73.9); Platelet Count 187 T/CUMM (130-400); Red Blood Count 3.55 MC/CUMM (3.8-5.5); Red Cell Distribution Width 14.6 % (9.3-17.3); White Blood Count 5.9 T/CUMM (4-12)
[2022-04-02 05:13] LABS: Calcium 8.3 MG/DL (8.5-10.1); Osmolality,Calculated 276.7 MOS/KG (273-304); Potassium 3.8 MMOL/L (3.5-5.1)
[2022-04-02] MEDS: LEVOTHYROXINE 50 MCG TABLET PO SCH (05:55)
[2022-04-02] MEDS: INSULIN LISPRO 100 UNIT/ML SUBCUT SCH ×4 (07:24→22:25)
[2022-04-02] MEDS ORDERED: POLYETHYLENE GLYCOL POWDER 17 GM PACK PO PRN (08:59)
[2022-04-02] MEDS: METOPROLOL SUCCINATE XL 25 MG TABLET PO SCH ×2 (09:16→22:24)
[2022-04-02] MEDS: CYCLOBENZAPRINE 10 MG TABLET PO SCH ×2 (09:16→22:24)
[2022-04-02] MEDS: FOLIC ACID 1 MG TABLET PO SCH (09:17)
[2022-04-02] MEDS: GABAPENTIN 100 MG CAPSULE PO SCH ×2 (09:17→22:24)
[2022-04-02] MEDS: PANTOPRAZOLE 40 MG TABLET PO SCH (09:17)
[2022-04-02] MEDS: cefTRIAXone 1,000 MG in SODIUM CHLORIDE 0.9% 100 ML IV SCH (22:25)
[2022-04-03 05:10] LABS: Basophils % 0.4 % (0.0-0.8); Eosinophils # 0.1 10*3/uL (0.0-0.87); Eosinophils % 1.9 % (0.00-10.9); Hematocrit 33.4 VOL% (35.7-47.0); Hemoglobin 11.1 GM/DL (12.0-16.0); Immature Granulocytes % 0.1 %; Immature Granulocytes Absolute 0.01 #; Lymphocytes # 2.4 10*3/uL (1.4-4.0); Lymphocytes % 35.3 % (21.3-54.2); Mean Corpuscular HGB Conc 33.2 GM/DL (32-36); Mean Corpuscular Volume 96.8 FL (87-102); Mean Platelet Volume 9.2 FL (9.6-12.0); Monocytes # 0.9 10*3/uL (0.11-0.8); Monocytes % 13.1 % (1.7-12.7); Neutrophils % 49.2 % (38.7-73.9); Platelet Count 173 T/CUMM (130-400); Red Blood Count 3.45 MC/CUMM (3.8-5.5); Red Cell Distribution Width 14.7 % (9.3-17.3); White Blood Count 6.8 T/CUMM (4-12)
[2022-04-03 05:36] LABS: Calcium 8.5 MG/DL (8.5-10.1); Osmolality,Calculated 275.8 MOS/KG (273-304); Potassium 3.8 MMOL/L (3.5-5.1)
[2022-04-03] MEDS: LEVOTHYROXINE 50 MCG TABLET PO SCH (06:31)
[2022-04-03] MEDS: INSULIN LISPRO 100 UNIT/ML SUBCUT SCH ×4 (08:12→20:54)
[2022-04-03] MEDS: GABAPENTIN 100 MG CAPSULE PO SCH ×2 (08:51→21:36)
[2022-04-03] MEDS: METOPROLOL SUCCINATE XL 25 MG TABLET PO SCH ×2 (08:51→21:36)
[2022-04-03] MEDS: FOLIC ACID 1 MG TABLET PO SCH (08:51)
[2022-04-03] MEDS: PANTOPRAZOLE 40 MG TABLET PO SCH (08:51)
[2022-04-03] MEDS: CYCLOBENZAPRINE 10 MG TABLET PO SCH ×2 (08:51→21:37)
[2022-04-03] MEDS: FLUTICASONE/SALMETEROL 100-50 DISKUS 14 DOSE INH SCH (21:34)
[2022-04-03] MEDS: cefTRIAXone 1,000 MG in SODIUM CHLORIDE 0.9% 100 ML IV SCH (21:37)
[2022-04-04 06:03] LABS: Basophils % 0.7 % (0.0-0.8); Eosinophils # 0.1 10*3/uL (0.0-0.87); Eosinophils % 2.4 % (0.00-10.9); Hematocrit 34.6 VOL% (35.7-47.0); Hemoglobin 11.5 GM/DL (12.0-16.0); Immature Granulocytes % 0.3 %; Immature Granulocytes Absolute 0.02 #; Lymphocytes # 2.4 10*3/uL (1.4-4.0); Lymphocytes % 41.3 % (21.3-54.2); Mean Corpuscular HGB Conc 33.2 GM/DL (32-36); Mean Corpuscular Volume 96.9 FL (87-102); Mean Platelet Volume 9.4 FL (9.6-12.0); Monocytes # 0.7 10*3/uL (0.11-0.8); Monocytes % 11.7 % (1.7-12.7); Neutrophils % 43.6 % (38.7-73.9); Platelet Count 176 T/CUMM (130-400); Red Blood Count 3.57 MC/CUMM (3.8-5.5); Red Cell Distribution Width 14.7 % (9.3-17.3); White Blood Count 5.9 T/CUMM (4-12)
[2022-04-04] MEDS: LEVOTHYROXINE 50 MCG TABLET PO SCH (06:16)
[2022-04-04 06:21] LABS: Calcium 8.7 MG/DL (8.5-10.1); Osmolality,Calculated 276.8 MOS/KG (273-304)
[2022-04-04] MEDS: INSULIN LISPRO 100 UNIT/ML SUBCUT SCH ×2 (06:55→11:23)
[2022-04-04] MEDS ORDERED: ERTAPENEM 1,000 MG in SODIUM CHLORIDE 0.9% 100 ML IV SCH (07:30)
[2022-04-04] MEDS ORDERED: TUBERCULIN SKIN TEST 0.1 ML SYRINGE INTRADERM ONE (07:56)
[2022-04-04] MEDS ORDERED: ASPIRIN CHEW 81 MG TABLET PO SCH (09:00)
[2022-04-04] MEDS: FOLIC ACID 1 MG TABLET PO SCH (09:14)
[2022-04-04] MEDS: PANTOPRAZOLE 40 MG TABLET PO SCH (09:14)
[2022-04-04] MEDS: METOPROLOL SUCCINATE XL 25 MG TABLET PO SCH (09:14)
[2022-04-04] MEDS: CYCLOBENZAPRINE 10 MG TABLET PO SCH (09:14)
[2022-04-04] MEDS: GABAPENTIN 100 MG CAPSULE PO SCH (09:14)
[2022-04-04] MEDS: FLUTICASONE/SALMETEROL 100-50 DISKUS 14 DOSE INH SCH (09:17)
[2022-04-04 11:59] VITALS: BP 103/53
== END 2022-04-04 16:05 | DRG 309 ==
LOC: N.EDINP 16:02 → N.ED 16:02 → N.TELES 22:13 → SUATTDRO 04-02 13:47
PROVIDERS: ADMIT Family Medicine; ATTEND Internal Medicine